=== PATIENT | male | born 1960 | race Two or more races ===

== ENCOUNTER 2018-09-19 18:58 | Emergency (ER) | payer OTHER ==
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
[2018-09-19 23:50] VITALS: BP 129/72
== END 2018-09-19 23:50 | disposition home or self-care (01) ==
LOC: ER 18:58
DX: M54.2 Cervicalgia (principal); R07.9 Chest pain, unspecified; V43.52XA Car driver injured in collision with other type car in traffic accident, initial encounter; J01.00 Acute maxillary sinusitis, unspecified; R20.2 Paresthesia of skin
CPT/HCPCS: 70450; 71045; 72125; 99284

== ENCOUNTER → 2019-12-26 | Outpatient (CLI) | payer OTHER ==
--- NOTE | 2019-12-26 11:31 | RADIOLOGY REPORT (SQ) ---
EXAM DESCRIPTION: C SP 4 OR 5 VIEWS COMPLETED DATE/TIME: 12/26/2019 11:08 am REASON FOR STUDY: RADICULOPATHY, CERVICAL REGION M54.12 RADICULOPATHY, CERVICAL REGION COMPARISON: None. NUMBER OF VIEWS: 7 views TECHNIQUE: AP, lateral, swimmer's, obliques and odontoid radiographic images acquired of the cervica l spine. LIMITATIONS: None. FINDINGS: MINERALIZATION: Normal. ALIGNMENT: Straightening of the normal cervical lordosis, likely positional VERTEBRAE: Vertebral bodies of normal height. DISCS: There is multilevel disc height loss throughout the cervical spine, greatest at at C4-C7. Ass ociated anterior and posterior projecting osteophytes. FORAMINA: There is multilevel neural foraminal narrowing from disc osteophyte complexes and uncoverte bral hypertrophy, greatest at C5-6 and C6-7 bilaterally. LATERAL AND POSTERIOR ELEMENTS: No facet fracture. No dislocation. HARDWARE: None in the spine. SOFT TISSUES: No masses or calcifications. Lung apices clear. OTHER: No other significant finding. IMPRESSION: 1. No evidence of acute bony abnormality of the cervical spine. 2. Multilevel degenerative changes greatest at C4-C7. Moderate osseous neural foraminal narrowing f rom uncovertebral hypertrophy and disc disease greatest at C5-6 and C6-7 bilaterally. TECHNICAL DOCUMENTATION: JOB ID: [id number] 2010 [employer]- All Rights Reserved Reading location - IP/workstation name: [email or web address]
== END ==
LOC: OD 10:43
PROVIDERS: ATTEND Family Medicine
DX: M50.123 Cervical disc disorder at C6-C7 level with radiculopathy (principal)
CPT/HCPCS: 72050

== ENCOUNTER → 2020-01-08 | Outpatient (CLI) | payer OTHER ==
--- NOTE | 2020-01-08 08:33 | RADIOLOGY REPORT (SQ) ---
EXAM DESCRIPTION: MRI CERVICAL SPINE WITHOUT IMAGES COMPLETED DATE/TIME: 01/08/2020 8:09 am REASON FOR STUDY: CERVICAL RADICULOPATHY (M54.12) M54.12 RADICULOPATHY, CERVICAL REGION COMPARISON: None. TECHNIQUE: Sagittal and Axial imaging includes T1, T2, STIR and gradient echo sequences. LIMITATIONS: None. FINDINGS: ALIGNMENT: Slight reversal of the normal cervical lordosis. VERTEBRAE: Intact. BONE MARROW: Normal. No marrow replacement or reactive changes. DISCS: Loss of height and signal throughout the cervical spine. HARDWARE: None in the spine. CORD AND BASE OF BRAIN: Normal in size and signal intensity. SOFT TISSUES: No soft tissue masses. C1-C2: No significant spinal stenosis. C2-C3: No significant spinal stenosis or exit foraminal stenosis. C3-C4: Disc space narrowing. Very slight effacement of the anterior thecal sac. No significant cent ral canal narrowing or foraminal narrowing. C4-C5: Disc space narrowing. Bilateral foraminal stenosis. No significant central stenosis. C5-C6: Disc space narrowing. Bilateral foraminal stenosis right greater than left. No high-grade ce ntral stenosis. C6-C7: Disc space narrowing with bilateral foraminal stenosis. Mild effacement anterior thecal sac. No high-grade central stenosis. C7-T1: Disc space narrowing with focal right lateral osteophyte resulting in right foraminal narrowin g. UPPER THORACIC: Incompletely imaged. No significant spinal stenosis or exit foraminal stenosis. OTHER: No other significant finding. IMPRESSION: 1. Multilevel disc degenerative disease. 2. Disc space narrowing at C4-5. Bilateral foraminal stenosis secondary to osteophytic spurring. 3. Disc space narrowing at C5-C6. Bilateral foraminal stenosis right greater than left. Changes ar e secondary to osteophytic spurring. 4. Disc space narrowing at C6-C7 with bilateral foraminal stenosis. Changes of secondary to disc/os teophyte complex and osteophytic spurring. 5. Asymmetric narrowing of the right neural foramina at C7-T1 secondary to asymmetric osteophytic sp urring. TECHNICAL DOCUMENTATION: JOB ID: [id number] 2010 [employer]- All Rights Reserved Reading location - IP/workstation name: [email or web address]
== END ==
LOC: RAD 07:26
PROVIDERS: ATTEND Family Medicine
DX: M54.12 Radiculopathy, cervical region (principal)
CPT/HCPCS: 72141